=== PATIENT | male | born 1995 | race Caucasian/White ===

== ENCOUNTER → 2017-10-21 | Outpatient (CLI) | payer OTHER ==
--- NOTE | 2017-10-21 10:00 | RADIOLOGY IMAGING REPORT ---
FACILITY: [facility] PATIENT NAME: Aquilino Huitron : 1995 MR: [id number] V: [id number] EXAM DATE: ORDERING PHYSICIAN: JOSE HEREDIA TECHNOLOGIST: Location: [facility] Patient: Aquilino Huitron : 1995 Visit/Account:[id number] Date of Sevice: 10/21/2017 TESTICULAR HISTORY: The testicular pain. History of right testicular torsion with surgery four years ago COMPARISON: None. FINDINGS: Testes: Right Mel measures 4 x 1.9 x 2.8 cm. The left skull measures 4.1 x 2 x 3 cm. Symmetric an d unremarkable blood flow documented by color and Duplex Doppler ultrasound. Epididymides: There is a 5 mm cyst had epididymis on the left. Blood flow is unremarkable in each ep ididymis by color Doppler ultrasound. Hydrocele: Tiny hydroceles bilaterally Varicocele: None. IMPRESSION: Tiny bilateral hydroceles 5 mm cyst had epididymis on the left Report Dictated By: Nandini Grover MD at 10/21/2017 9:55 AM Report E-Signed By: Nandini Grover MD at 10/21/2017 9:57 AM WSN:[id number]
== END ==
LOC: US 08:49
PROVIDERS: ATTEND Emergency Medicine Sports Medicine
DX: N43.3 Hydrocele, unspecified (principal); N50.3 Cyst of epididymis
CPT/HCPCS: 76870